=== PATIENT | male | born 1965 | race Caucasian/White ===

== ENCOUNTER 2019-01-31 09:43 | Emergency (ER) | payer SELFPAY ==
--- NOTE | 2019-01-31 10:32 | RAD REPORT ---
EXAM DESCRIPTION: RAD - Chest Single View - 01/31/2019 10:28 am CLINICAL HISTORY: chest pain Chest pain. COMPARISON: No comparisons FINDINGS: Portable technique limits examination quality. The lungs are mildly emphysematous but grossly clear. The heart is normal in size. No displaced fract ures. Costophrenic angles are excluded from the projection. IMPRESSION: Mild COPD seen.
[2019-01-31 10:34] LABS: Absolute Lymphocytes (CBC) 1.4 K/uL (0.7-4.9); Hematocrit 44.4 % (39.6-49.0); Lymphocytes % 20.8 % (15.3-44.8); MPV 7.8 fL (7.6-11.3); RBC Red Blood Cell Count 4.92 M/uL (4.33-5.43)
[2019-01-31 10:38] LABS: Protime INR 0.88
[2019-01-31 10:55] LABS: ALT/SGPT 27 U/L (12-78); AST/SGOT 16 U/L (15-37); Albumin 3.5 g/dL (3.4-5.0); Alkaline Phosphatase 96 U/L (45-117); BUN Blood Urea Nitrogen 12 mg/dL (7-18); Bicarbonate 24 mmol/L (21-32); Bilirubin Direct 0.1 mg/dL (0-0.2); Bilirubin Total 0.2 mg/dL (0.2-1.0); Glucose Level 110 mg/dL (74-106); Magnesium 1.8 mg/dL (1.8-2.4); NT PRO-BNP 119 pg/mL (<125); Potassium 3.9 mmol/L (3.5-5.1); Protein, Total 6.4 g/dL (6.4-8.2); Sodium Level 141 mmol/L (136-145); Troponin (Emerg Dept Use Only) < 0.02 ng/mL (0.0-0.045)
--- NOTE | 2019-01-31 12:13 | ER ---
Nurse's Notes [facility] Name: Ramón Sanchez Age: 53 yrs Sex: Male : 1965 Arrival Date: 01/31/2019 Time: 09:44 Bed 6 Private MD: Diagnosis: Chest pain, unspecified Presentation: 01/31 10:05 Presenting complaint: Patient states: anterior chest pain, dizziness, SOB started and sv ended on Tuesday. Denies CP at this time. Transition of care: patient was not received from another setting of care. Onset of symptoms was January 29, 2019. Risk Assessment: Do you want to hurt yourself or someone else? Patient reports no desire to harm self or others. Initial Sepsis Screen: Does the patient meet any 2 criteria? No. Patient's initial sepsis screen is negative. Does the patient have a suspected source of infection? No. Patient's initial sepsis screen is negative. Care prior to arrival: None. 10:05 Method Of Arrival: Ambulatory sv 10:05 Acuity: DUANE 2 sv Triage Assessment: 10:05 General: Appears in no apparent distress. comfortable, slender, Behavior is calm, sv cooperative, appropriate for age. Pain: Denies pain. Neuro: Level of Consciousness is awake, alert, obeys commands, Oriented to person, place, time, situation, Moves all extremities. Full function Gait is steady. Cardiovascular: Patient's skin is warm and dry. Pulses are 3+ in right radial artery and left radial artery Rhythm is sinus rhythm. Cardiovascular: Denies chest pain. Respiratory: Respiratory effort is even, unlabored, Respiratory pattern is regular, symmetrical. Derm: Skin is pink, warm \T\ dry. Historical: - Allergies: 10:10 Codeine; sv - Home Meds: 10:10 aspirin 325 mg Oral tab daily prn [Active]; sv - PMHx: 10:10 None; sv - PSHx: 10:10 None; sv - Immunization history:: Adult Immunizations up to date. - Social history:: Smoking status: Patient uses tobacco products, smokes one pack cigarettes per day. Patient/guardian denies using alcohol, street drugs, IV drugs. - Ebola Screening: : No symptoms or risks identified at this time. Screenin:08 Abuse screen: Denies threats or abuse. Denies injuries from another. Nutritional sv screening: No deficits noted. Tuberculosis screening: No symptoms or risk factors identified. Fall Risk None identified. Assessment: 11:00 Reassessment: Patient appears in no apparent distress at this time. No changes from sv previously documented assessment. Patient and/or family updated on plan of care and expected duration. Pain level reassessed. Patient is alert, oriented x 3, equal unlabored respirations, skin warm/dry/pink. 12:22 Reassessment: Patient is alert, oriented x 3, equal unlabored respirations, skin aa5 warm/dry/pink. Vital Signs: 10:08 BP 161 / 98; Pulse 82 MON; Resp 17; Temp 98; Pulse Ox 100% on R/A; Weight 63.5 kg; sv Height 5 ft. 8 in. (172.72 cm); Pain 0/10; 11:00 BP 150 / 88; Pulse 88; Resp 17; Pulse Ox 99% ; sv 11:42 BP 152 / 89; Pulse 68; Resp 20; Pulse Ox 100% on R/A; sv 10:08 Body Mass Index 21.29 (63.50 kg, 172.72 cm) sv 10:08 Sinus Rhythm sv ED Course: 09:44 Patient arrived in ED. as 09:58 Penny Calderon, DEANA is Primary Nurse. sv 10:03 EKG done, by line service technician. reviewed by Iain Gr MD. jb1 10:04 Panchito Carter, EXECUTIVE SEARCH CONSULTANT is PHCP. pm1 10:04 Iain Gr MD is Attending Physician. pm1 10:05 Inserted saline lock: 20 gauge in right forearm, using aseptic technique. Blood sv collected. Flushed right forearm with 5 ml normal saline. 10:05 Patient maintains SpO2 saturation greater than 95% on room air. sv 10:05 Patient has correct armband on for positive identification. Placed in gown. Bed in low sv position. Call light in reach. market research manager on. Pulse ox on. NIBP on. Door closed. Head of bed elevated. 10:05 Arm band placed on. sv 10:10 Triage completed. sv 10:20 Awaiting lab results, Awaiting for x-ray. sv 10:27 Protime (+INR) Sent. sv 10:27 CBC with Automated Diff Sent. sv 10:27 Magnesium Sent. sv 10:27 NT PRO-BNP Sent. sv 10:28 Troponin (Emerg Dept Use Only) Sent. sv 10:28 Liver (Hepatic) Function Sent. sv 10:28 Basic Metabolic Panel Sent. sv 10:28 Basic Metabolic Panel Sent. sv 10:28 CBC with Diff Sent. sv 10:28 LFT's Sent. sv 10:28 Magnesium Sent. sv 10:28 NT PRO-BNP Sent. sv 10:28 PT-INR Sent. sv 10:28 Troponin (emerg Dept Use Only) Sent. sv 10:29 Nurse Practitioner and/or Physician Rail Gang Supervisor to see patient. sv 10:33 Chest Single View In Process Unspecified. EDMS 12:20 No provider procedures requiring assistance completed. IV discontinued, intact, aa5 bleeding controlled, No redness/swelling at site. Pressure dressing applied. Administered Medications: No medications were administered Outcome: 12:11 Discharge ordered by MD. pm1 12:22 Discharged to home ambulatory. aa5 12:22 Condition: stable 12:22 Discharge instructions given to patient, Instructed on discharge instructions, follow up and referral plans. Demonstrated understanding of instructions, follow-up care. 12:24 Patient left the ED. aa5 Signatures: Dispatcher [employer] EDMO Jeff Camara jbPenny Soliman, RN RN Azucena Squires Audri, RN RN aa5 Panchito Carter NP EXECUTIVE SEARCH CONSULTANT pm1
--- NOTE | 2019-01-31 12:13 | EDPHYS ---
Physician Documentation [facility] Name: Ramón Sanchez Age: 53 yrs Sex: Male : 1965 Arrival Date: 01/31/2019 Time: 09:44 Bed 6 Private MD: ED Physician Iain Gr HPI: 01/31 11:05 This 53 yrs old Male presents to ER via Ambulatory with complaints of pm1 Dizziness, Chest Pain. 11:05 The patient or guardian reports chest pain that is located primarily in the right pm1 breast and left breast. Onset: 2 day(s) ago. The pain does not radiate. Associated signs and symptoms: Pertinent positives: dizziness, Pertinent negatives: abdominal pain, cough, headache, nausea, shortness of breath, vomiting. The chest pain is described as sharp. Duration: The patient or guardian reports a single episode, Chest pain present only with deep breathing, lasted for 4 hours on Tuesday then resolved. Patient was sent home from work when he had the chest pain and he tried to return to work today. he was told that he needs a doctor's note to go back to work. Patient currently without any chest pain. No chest pain since resolution on Tuesday. Modifying factors: the symptoms are aggravated by deep breath. Severity of pain: in the emergency department the pain has resolved 2 day(s) prior to arrival, is a 0 / 10. The patient has not experienced similar symptoms in the past. The patient has not recently seen a physician. Historical: - Allergies: 10:10 Codeine; sv - Home Meds: 10:10 aspirin 325 mg Oral tab daily prn [Active]; sv - PMHx: 10:10 None; sv - PSHx: 10:10 None; sv - Immunization history:: Adult Immunizations up to date. - Social history:: Smoking status: Patient uses tobacco products, smokes one pack cigarettes per day. Patient/guardian denies using alcohol, street drugs, IV drugs. - Ebola Screening: : No symptoms or risks identified at this time. ROS: 11:05 Constitutional: Negative for fever, chills, and weight loss, Eyes: Negative for injury, pm1 pain, redness, and discharge, ENT: Negative for injury, pain, and discharge, Neck: Negative for injury, pain, and swelling. 11:05 Respiratory: Negative for shortness of breath, cough, wheezing, and pleuritic chest pain, Abdomen/GI: Negative for abdominal pain, nausea, vomiting, diarrhea, and constipation, Back: Negative for injury and pain, : Negative for injury, bleeding, discharge, and swelling, MS/Extremity: Negative for injury and deformity, Skin: Negative for injury, rash, and discoloration. 11:05 Cardiovascular: Positive for chest pain, Negative for edema, orthopnea, palpitations. 11:05 Neuro: Positive for dizziness, Negative for headache, numbness, tingling, weakness. Exam: 11:05 Constitutional: This is a well developed, well nourished patient who is awake, alert, pm1 and in no acute distress. Head/Face: Normocephalic, atraumatic. Eyes: Pupils equal round and reactive to light, extra-ocular motions intact. Lids and lashes normal. Conjunctiva and sclera are non-icteric and not injected. Cornea within normal limits. Periorbital areas with no swelling, redness, or edema. ENT: Nares patent. No nasal discharge, no septal abnormalities noted. Tympanic membranes are normal and external auditory canals are clear. Oropharynx with no redness, swelling, or masses, exudates, or evidence of obstruction, uvula midline. Mucous membranes moist. Neck: Trachea midline, no thyromegaly or masses palpated, and no cervical lymphadenopathy. Supple, full range of motion without nuchal rigidity, or vertebral point tenderness. No Meningismus. Chest/axilla: Normal chest wall appearance and motion. Nontender with no deformity. No lesions are appreciated. Cardiovascular: Regular rate and rhythm with a normal S1 and S2. No gallops, murmurs, or rubs. Normal PMI, no JVD. No pulse deficits. Respiratory: Lungs have equal breath sounds bilaterally, clear to auscultation and percussion. No rales, rhonchi or wheezes noted. No increased work of breathing, no retractions or nasal flaring. Abdomen/GI: Soft, non-tender, with normal bowel sounds. No distension or tympany. No guarding or rebound. No evidence of tenderness throughout. Back: No spinal tenderness. No costovertebral tenderness. Full range of motion. Skin: Warm, dry with normal turgor. Normal color with no rashes, no lesions, and no evidence of cellulitis. MS/ Extremity: Pulses equal, no cyanosis. Neurovascular intact. Full, normal range of motion. 11:05 Neuro: Orientation: is normal, Motor: is normal, moves all fours, Sensation: is normal, no obvious gross deficits. Vital Signs: 10:08 BP 161 / 98; Pulse 82 MON; Resp 17; Temp 98; Pulse Ox 100% on R/A; Weight 63.5 kg; sv Height 5 ft. 8 in. (172.72 cm); Pain 0/10; 11:00 BP 150 / 88; Pulse 88; Resp 17; Pulse Ox 99% ; sv 11:42 BP 152 / 89; Pulse 68; Resp 20; Pulse Ox 100% on R/A; sv 10:08 Body Mass Index 21.29 (63.50 kg, 172.72 cm) sv 10:08 Sinus Rhythm sv MDM: 10:16 Patient medically screened. pm1 11:09 Data reviewed: vital signs. Data interpreted: Pulse oximetry: on room air is 100 %. pm1 Interpretation: normal. 12:11 Counseling: I had a detailed discussion with the patient and/or guardian regarding: the pm1 historical points, exam findings, and any diagnostic results supporting the discharge/admit diagnosis, lab results, radiology results, the need for outpatient follow up, to return to the emergency department if symptoms worsen or persist or if there are any questions or concerns that arise at home. 01/31 10:26 Order name: Basic Metabolic Panel; Complete Time: 10:58 EDMS 01/31 10:26 Order name: Liver (Hepatic) Function; Complete Time: 10:58 EDMS 01/31 10:26 Order name: Troponin (Emerg Dept Use Only); Complete Time: 10:58 EDMS 01/31 10:26 Order name: NT PRO-BNP; Complete Time: 10:58 EDMS 01/31 10:26 Order name: Magnesium; Complete Time: 10:58 EDMS 01/31 10:26 Order name: CBC with Automated Diff; Complete Time: 10:58 EDMS 01/31 10:26 Order name: Protime (+INR); Complete Time: 10:58 EDMS 01/31 09:58 Order name: EKG; Complete Time: 10:25 01/31 09:58 Order name: Cardiac monitoring; Complete Time: 10:05 sv 01/31 09:58 Order name: EKG - Nurse/Tech; Complete Time: 10: 01/31 09:58 Order name: IV Saline Lock; Complete Time: 10: 01/31 09:58 Order name: Labs collected and sent; Complete Time: 10: 01/31 09:58 Order name: O2 Per Protocol; Complete Time: 10: 01/31 09:58 Order name: O2 Sat Monitoring; Complete Time: 10: 01/31 10:14 Order name: Chest Single View; Complete Time: 10:58 EDVT Administered Medications: No medications were administered Disposition: 15:44 Co-signature as Attending Physician, Iain Gr MD I agree with the assessment and kdr plan of care. Disposition: 01/31/19 12:11 Discharged to Home. Impression: Chest pain, unspecified. - Condition is Stable. - Discharge Instructions: Nonspecific Chest Pain. - Work release form, Medication Reconciliation Form, Thank You Letter, Antibiotic Education, Prescription Opioid Use form. - Follow up: Emergency Department; When: As needed; Reason: Worsening of condition. Follow up: Private Physician; When: 2 - 3 days; Reason: Recheck today's complaints, Continuance of care, Re-evaluation by your physician. - Problem is new. - Symptoms have improved. Signatures: Dispatcher [employer] [facility] Penny Calderon RN RN Iain Gr MD MD [facility] Ledy Finley RN RN aa5 Panchito Carter, SUBSURFACE AUGMENTEE ELINT OPERATOR SUBSURFACE AUGMENTEE ELINT OPERATOR pm1 Corrections: (The following items were deleted from the chart) 10:33 10:25 Chest Single View+RAD.[email or web address].[email or web address] ordered. [facility] 12:24 12:11 01/31/2019 12:11 Discharged to Home. Impression: Chest pain, unspecified. aa5 Condition is Stable. Forms are Medication Reconciliation Form, Thank You Letter, Antibiotic Education, Prescription Opioid Use. Follow up: Emergency Department; When: As needed; Reason: Worsening of condition. Follow up: Private Physician; When: 2 - 3 days; Reason: Recheck today's complaints, Continuance of care, Re-evaluation by your physician. Problem is new. Symptoms have improved. pm1
[2019-01-31 12:32] VITALS: TEMP 98; O2SAT 100
[2019-01-31 12:33] VITALS: BP 152/89
--- NOTE | 2019-01-31 14:42 | EKG ---
Test Date: 2019-01-31 Test Time: 10:04:24 Public Health Nutritionist: JASON MEASUREMENT RESULTS: Intervals: Rate: 77 WV: 100 QRSD: 98 QT: 376 QTc: 425 [place]: P: 84 WV: 100 QRS: 76 T: 86 INTERPRETIVE STATEMENTS: Sinus rhythm with sinus arrhythmia with short WV Right atrial enlargement Borderline ECG Compared to ECG 09/27/2006 15:00:42 Short WV interval now present Atrial abnormality now present Electronically Signed On 01-31-19 14:41:29 CDT by Dom Flores
== END 2019-01-31 12:24 | disposition home or self-care (01) ==
LOC: ER 09:43
DX: R07.9 Chest pain, unspecified (principal); F17.210 Nicotine dependence, cigarettes, uncomplicated; Z79.82 Long term (current) use of aspirin; Z88.5 Allergy status to narcotic agent
CPT/HCPCS: 36415; 71045; 80048; 80076; 83735; 83880; 84484; 85025; 85610; 93005; 99285